=== PATIENT | female | born 1990 | race African-American/Black ===

== ENCOUNTER 2017-01-15 06:29 | Emergency (ER) | payer SELFPAY ==
[~2017-01-15] VITALS: Ht 172.7 cm; Wt 99.8 kg
[2017-01-15 06:54] VITALS: BP 152/95
== END 2017-01-15 07:43 | disposition home or self-care (01) ==
LOC: ER 06:34
DX: H01.004 Unspecified blepharitis left upper eyelid (principal)

== ENCOUNTER 2018-06-28 08:03 | Emergency (ER) | payer SELFPAY ==
[~2018-06-28] VITALS: Ht 172.7 cm; Wt 99.8 kg
[2018-06-28 08:59] LABS: Eosinophils # (auto) 0.1 uL; Mean Corpuscular Hemoglobin 22.5 pg (28.0-32.0); Mean Corpuscular Volume 71.9 fL (80.0-100.0); Monocytes # (auto) 0.5 uL; White Blood Cell 4.6 10^3/uL (4.4-10.8)
[2018-06-28 09:01] LABS: Basophils # (auto) 0 uL; Basophils % (auto) 0.6 % (0.0-2.0); Eosinophils % (auto) 2.9 % (0.0-7.0); Hematocrit 40.8 % (36.0-46.0); Hemoglobin 12.8 g/dL (12.2-16.2); Lymphocytes # (auto) 1.6 uL; Lymphocytes % (auto) 33.5 % (10.0-50.0); Mean Corpuscular Hgb Conc. 31.3 g/dL (32.0-36.0); Monocytes % (auto) 10.6 % (0.0-12.0); Neutrophils # (auto) 2.4 uL; Neutrophils % (auto) 52.4 % (37.0-80.0); Nucleated Red Blood Cells % 0.2 %; Platelet Count (auto) 312 10^3/uL (140-450); Red Blood Cells 5.68 10^6/uL (4.0-5.20); Red Cell Distribution Width 14.2 % (11.8-14.3)
[2018-06-28 09:08] LABS: Urine Bacteria FEW /hpf (None Seen); Urine Blood 1+ /uL (Negative); Urine Mucus FEW (None Seen); Urine Specific Gravity 1.041 (1.001-1.035); Urine WBC 8 /hpf (0 - 5)
[2018-06-28] MEDS ORDERED: cefTRIAXone 1GM/50ML D5W 50 ML IV ONE (09:15)
[2018-06-28] MEDS ORDERED: SODIUM CHLORIDE 0.9% 1,000 ML IV ONE (09:15)
[2018-06-28 09:17] LABS: BUN/Creatinine Ratio 16.5; Calcium 8.6 mg/dL (8.5-10.1)
[2018-06-28 09:20] LABS: Bilirubin, Total 0.3 mg/dL (0.2-1.0); Total Protein 7.9 g/dL (6.4-8.2)
[2018-06-28] MEDS ORDERED: InsuLIN REG 1unit/0.01ml Soln (100units/ml) IV ONE ×2 (09:45→10:45)
[2018-06-28] MEDS ORDERED: POTASSIUM CHL 20 Meq TABLET PO ONE (10:45)
[2018-06-28] MEDS ORDERED: LABETALOL HCL 5 MG/ML ML 20ML VIAL IV ONE (11:15)
[2018-06-28 11:25] VITALS: BP 154/89
== END 2018-06-28 11:44 | disposition home or self-care (01) ==
LOC: ER 08:03
DX: L03.011 Cellulitis of right finger (principal); E11.65 Type 2 diabetes mellitus with hyperglycemia; N39.0 Urinary tract infection, site not specified; Z91.14 Patient's other noncompliance with medication regimen
CPT/HCPCS: 10060; 36415; 80053; 81001; 82962; 85025; 96361; 96365; 96375; 96376; 99283; J0696; J1815; J7030

== ENCOUNTER 2018-10-17 16:09 | Emergency (ER) | payer SELFPAY ==
[~2018-10-17] VITALS: Ht 172.7 cm; Wt 99.8 kg
[2018-10-17 16:26] VITALS: BP 152/92
[2018-10-17 16:51] LABS: Urine WBC None Seen /hpf (0 - 5)
[2018-10-17 17:01] LABS: Urine Bacteria NONE SEEN /hpf (None Seen); Urine Blood Negative /uL (Negative); Urine Specific Gravity 1.038 (1.001-1.035)
== END 2018-10-17 18:27 | disposition left against medical advice (07) ==
LOC: ER 16:17
DX: R30.0 Dysuria (principal); N89.8 Other specified noninflammatory disorders of vagina; Z53.21 Procedure and treatment not carried out due to patient leaving prior to being seen by health care provider
CPT/HCPCS: 81001

== ENCOUNTER 2019-01-13 18:41 | Emergency (ER) | payer SELFPAY ==
[~2019-01-13] VITALS: Ht 172.7 cm; Wt 99.8 kg
[2019-01-13] MEDS ORDERED: IBUPROFEN 800 MG TAB PO ONE (19:45)
[2019-01-13 20:35] LABS: Urine Bacteria FEW /hpf (None Seen); Urine Blood 2+ /uL (Negative); Urine Mucus FEW (None Seen); Urine Specific Gravity 1.028 (1.001-1.035); Urine WBC 418 /hpf (0 - 5)
[2019-01-13 21:05] VITALS: BP 151/82
== END 2019-01-13 21:10 | disposition home or self-care (01) ==
LOC: ER 18:42
DX: N30.00 Acute cystitis without hematuria (principal); E11.9 Type 2 diabetes mellitus without complications
CPT/HCPCS: 81001

== ENCOUNTER 2019-01-20 01:57 | Emergency (ER) | payer SELFPAY ==
[~2019-01-20] VITALS: Ht 172.7 cm; Wt 121.8 kg
[2019-01-20] MEDS ORDERED: cefTRIAXone SOD 1,000 MG VL IM ONE (03:15)
[2019-01-20 03:17] LABS: Urine Bacteria MOD /hpf (None Seen); Urine Blood 2+ /uL (Negative); Urine Specific Gravity 1.017 (1.001-1.035); Urine WBC 2459 /hpf (0 - 5)
[2019-01-20 03:53] VITALS: BP 147/86
== END 2019-01-20 04:05 | disposition home or self-care (01) ==
LOC: ER 01:59
DX: N39.0 Urinary tract infection, site not specified (principal); E11.9 Type 2 diabetes mellitus without complications
CPT/HCPCS: 81001; 81025; 96372; 99283; J0696

== ENCOUNTER 2019-02-16 16:11 | Emergency (ER) | payer SELFPAY ==
[~2019-02-16] VITALS: Ht 172.7 cm; Wt 99.8 kg
[2019-02-16 17:08] VITALS: BP 172/111
[2019-02-16 18:15] LABS: Urine Bacteria FEW /hpf (None Seen); Urine Blood 2+ /uL (Negative); Urine Mucus FEW (None Seen); Urine Specific Gravity 1.021 (1.001-1.035); Urine WBC 1536 /hpf (0 - 5); Urine WBC Clumps PRESENT /hpf (None Seen)
== END 2019-02-16 20:39 | disposition home or self-care (01) ==
LOC: ER 16:11
DX: N39.0 Urinary tract infection, site not specified (principal); E11.9 Type 2 diabetes mellitus without complications; F12.10 Cannabis abuse, uncomplicated
CPT/HCPCS: 81001